=== PATIENT | male | born 1940 | race Caucasian/White ===

== ENCOUNTER 2017-10-23 11:16 | Day surgery (SDC) | payer MEDICARE, OTHER ==
[~2017-10-23] VITALS: Ht 172.7 cm; Wt 64.6 kg
[2017-10-23] VITALS (7 sets, daily range): BP systolic 134–165; BP diastolic 59–98; PULSE 49–56; TEMP 97.9
[2017-10-23] MEDS ORDERED: NORVASC 10MG10 MG PO (11:56)
[2017-10-23] MEDS ORDERED: ASPIRIN E.C. 8181 MG PO (11:57)
[2017-10-23] MEDS ORDERED: VASOTEC 10M10 MG/TAB PO (11:58)
[2017-10-23 11:59] LABS: HEMATOCRIT 37.9 % (42.0-52.0); HEMOGLOBIN 12.6 g/dl (13.5-18.0); MEAN CELL VOLUME 97 fl (80.0-100.0); MEAN CORPUSCULAR HEMOGLOBIN 32 pg (27.0-31.0); MEAN CORPUSCULAR HGB CONC 33 g/dl (33.0-37.0); PLATELET COUNT 375 K/mm3 (130-400); RED BLOOD COUNT 3.89 M/mm3 (4.20-5.60); WHITE BLOOD COUNT 5.8 K/mm3 (4.8-10.8)
[2017-10-23] MEDS ORDERED: MOBIC 7.5MG7.5 MG PO (11:59)
[2017-10-23] MEDS ORDERED: FLOMAX 0.40.4 MG/CAP PO (12:00)
[2017-10-23] MEDS ORDERED: PLAVIX 75MG TAB75 MG PO (12:01)
[2017-10-23] MEDS ORDERED: LOPRESSOR 225 MG/TAB PO (12:03)
[2017-10-23] MEDS ORDERED: LIPITOR 40MG TA40 MG PO (12:03)
[2017-10-23] MEDS ORDERED: MULTI VITAMINS1 TAB PO (12:04)
[2017-10-23] MEDS ORDERED: CALCIUM CITRAT950 MG (12:05)
[2017-10-23] MEDS ORDERED: POTASSIUM GLUC595 M1 PO (12:05)
[2017-10-23 12:10] LABS: CALCIUM 9.2 mg/dL (8.4-10.2); CREATININE, serum 0.82 mg/dL (0.66-1.25); POTASSIUM 4.4 mmol/L (3.4-5.0)
[2017-10-23 12:15] LABS: PROTHROMBIN TIME 12.1 SECONDS (9.7-12.8)
== END 2017-10-23 16:50 | disposition home or self-care (01) ==
LOC: COL.CAR 11:16
PROVIDERS: Internal Medicine Interventional Cardiology
DX: R07.9 Chest pain, unspecified (principal); I10 Essential (primary) hypertension; E78.5 Hyperlipidemia, unspecified; F17.200 Nicotine dependence, unspecified, uncomplicated; Z86.79 Personal history of other diseases of the circulatory system; Z86.73 Personal history of transient ischemic attack (TIA), and cerebral infarction without residual deficits; Z83.3 Family history of diabetes mellitus
CPT/HCPCS: J2250; J3010; Q9967

== ENCOUNTER → 2018-04-12 | Outpatient (REF) ==
[~2018-04-12] MED LIST: ASPIRIN E.C. 8181 MG PO; CALCIUM CITRAT950 MG; FLOMAX 0.40.4 MG/CAP PO; LIPITOR 40MG TA40 MG PO; LOPRESSOR 225 MG/TAB PO; MOBIC 7.5MG7.5 MG PO; MULTI VITAMINS1 TAB PO; NORVASC 10MG10 MG PO; PLAVIX 75MG TAB75 MG PO; POTASSIUM GLUC595 M1 PO; VASOTEC 10M10 MG/TAB PO
== END ==
LOC: ZLAB.WCH 09:22
DX: Z01.89 Encounter for other specified special examinations (principal)
CPT/HCPCS: G0103

== ENCOUNTER → 2018-04-12 | Outpatient (REF) | LOC: ZLAB.WCH 14:27 | DX: Z01.89 Encounter for other specified special examinations (principal) ==

== ENCOUNTER → 2018-10-17 | Outpatient (REF) ==
[2018-10-17 18:30] LABS: THYROID STIMULATING HORMONE 1.11 uIU/mL (0.465-4.680)
== END ==
LOC: ZLAB.WCH 17:47
PROVIDERS: Physician Assistant
DX: Z01.89 Encounter for other specified special examinations (principal)

== ENCOUNTER → 2018-11-14 | Outpatient (CLI) | payer MEDICARE, OTHER | LOC: COL.RAD 14:42 | DX: G31.9 Degenerative disease of nervous system, unspecified (principal); I67.82 Cerebral ischemia; I63.89 Other cerebral infarction; Z86.73 Personal history of transient ischemic attack (TIA), and cerebral infarction without residual deficits | CPT/HCPCS: A9585 ==